=== PATIENT | male | born 1985 | race Two or more races ===

== ENCOUNTER 2017-09-10 13:28 | Emergency (ER) | payer BC, OTHER ==
[2017-09-10 13:45] VITALS: TEMP 97.5; BMI 34.2
--- NOTE | 2017-09-10 14:03 | PDOC ---
Attending Attestation - Resident Resident Name: Oswaldo Rice - ED Attending Attestation I have performed the following: I have examined & evaluated the patient, The case was reviewed & discussed with the resident, I agree w/resident's findings & plan, Exceptions are as noted
--- NOTE | 2017-09-10 14:13 | PDOC ---
History of Present Illness - General Chief Complaint: Blood Sugar Problem Stated Complaint: BLOOD SUGAR PROBLEM Time Seen by Provider: 09/10/17 13:53 History Source: Patient Exam Limitations: No Limitations - History of Present Illness Initial Comments: 09/10/17 14:04 Patient is a 32M with history of IDDM here today complaining of high blood sugar. He measured his blood sugar at about 350. He called his PCP who told him to come into to be seen. He says he's eaten nothing today except for a granola bar just before coming. Associated symptoms include increased urination and dizziness. He denies pain with urination. He describes the dizziness as feeling like he's going to fall over. He denies nausea, vomiting, fevers and chills. He denies chest pain, shortness of breath and diaphoresis. Past History - Past Medical History Allergies/Adverse Reactions: Allergies Allergy/AdvReac Type Severity Reaction Status Date / Time No Known Allergies Allergy Verified 09/10/17 13:38 Home Medications: Ambulatory Orders Insulin Glargine,Hum.rec.anlog [Lantus Solostar PEN (NF)] 10 units SQ HS Metformin HCl 500 mg PO BID 09/10/17 COPD: No Diabetes: Yes (iddm) - Suicide/Smoking/Psychosocial Hx Smoking History: Never smoked Have you smoked in the past 12 months: No Information on smoking cessation initiated: No Hx Alcohol Use: No Drug/Substance Use Hx: No Substance Use Type: None Review of Systems - Review of Systems Comments:: 09/10/17 14:13 GENERAL/CONSTITUTIONAL: No fever or chills. No weakness. HEAD, EYES, EARS, NOSE AND THROAT: No change in vision. No sore throat. CARDIOVASCULAR: No chest pain or shortness of breath RESPIRATORY: No cough, wheezing, or hemoptysis. GASTROINTESTINAL: No nausea, vomiting, diarrhea or constipation. GENITOURINARY: No dysuria, frequency, or change in urination. MUSCULOSKELETAL: No joint or muscle swelling or pain. No neck or back pain. SKIN: No rash NEUROLOGIC: No headache, loss of consciousness, or change in strength/ sensation. Positive for dizziness ENDOCRINE: No increased thirst. No abnormal weight change HEMATOLOGIC/LYMPHATIC: No anemia, easy bleeding, or history of blood clots. ALLERGIC/IMMUNOLOGIC: No hives or skin allergy. *Physical Exam - Vital Signs Last Vital Signs Temp Pulse Resp BP Pulse Ox 97.5 F L 86 18 135/78 100 09/10/17 13:38 09/10/17 13:38 09/10/17 13:38 09/10/17 13:38 09/10/17 13:38 - Physical Exam Comments: 09/10/17 14:15 GENERAL: Awake, alert, and fully oriented, in no acute distress HEAD: No signs of trauma, normocephalic, atraumatic EYES: PERRLA, EOMI, sclera anicteric, conjunctiva clear ENT: Auricles normal inspection, hearing grossly normal, nares patent, oropharynx clear without exudates. Moist mucosa NECK: Normal ROM, supple, no lymphadenopathy, JVD, or masses LUNGS: No distress, speaks full sentences, clear to auscultation bilaterally HEART: Regular rate and rhythm, normal S1 and S2, no murmurs, rubs or gallops, peripheral pulses normal and equal bilaterally. ABDOMEN: Soft, nontender, normoactive bowel sounds. No guarding, no rebound. No masses EXTREMITIES: Normal inspection, Normal range of motion, no edema. No clubbing or cyanosis. NEUROLOGICAL: Cranial nerves II through XII grossly intact. Normal speech, normal gait, no focal sensorimotor deficits. No cerebellar signs. SKIN: Warm, Dry, normal turgor, no rashes or lesions noted. ED Treatment Course - LABORATORY CBC & Chemistry Diagram: 09/10/17 14:52 09/10/17 14:53 Medical Decision Making - Medical Decision Making 09/10/17 14:15 32M with history of IDDM here today with high blood sugar and dizziness. Neuro exam normal. Vital signs stable and normal. Blood sugar at 145 here today. Patient took own blood sugar, again 350. Will repeat with out machine. 09/10/17 14:25 Repeat blood sugar 410. Will evaluate with labs. Will give fluids. 09/10/17 16:24 Laboratory Tests 09/10/17 09/10/17 09/10/17 14:52 14:53 15:00 WBC 6.4 Hgb 16.6 Hct 48.4 Plt Count 196 Potassium 4.2 Anion Gap 11 BUN 14 Creatinine 0.9 Random Glucose 383 H* Troponin I < 0.02 Ur Specific [place] 1.037 H Urine Glucose (UA) 3+ H Urine Ketones 2+ H CBC normal. K normal. Trop negative. Glucose 383, elevated. Urine notable for 3 + glucose and 2+ ketones. 09/10/17 17:14 CXR normal, will give second liter of fluid and repeat glucose. 09/10/17 17:32 Acetone neg. Repeat blood sugar 123. Patient feels tired but improved. Will discharge with PCP follow up. Patient has PCP appointment scheduled for tomorrow. Return precautions given. Discharged to home. *DC/Admit/Observation/Transfer Diagnosis at time of Disposition: Hyperglycemia - Discharge Dispostion Disposition: HOME Condition at time of disposition: Good Admit: No - Referrals - Patient Instructions Printed Discharge Instructions: DI for Hyperglycemia -- Adult Additional Instructions: Please follow up with your primary care doctor tomorrow as discussed. Please return with any new, concerning or worsening symptoms. - Post Discharge Activity
[2017-09-10] MEDS ORDERED: SODIUM CHLORIDE 1,000 ML IV STA ×2 (14:27→17:11)
[2017-09-10 15:07] LABS: MCH 29.3 pg (25.7-33.7); MCHC 34.3 g/dl (32.0-35.9); MEAN CELL VOLUME 85.2 fl (80-96); PLATELET COUNT 196 K/MM3 (134-434); RDW 12.1 % (11.9-15.9); WHITE BLOOD COUNT 6.4 K/mm3 (4.0-10.0)
[2017-09-10 15:17] LABS: URINE APPEARANCE CLEAR; URINE BILIRUBIN NEGATIVE (NEGATIVE); URINE BLOOD NEGATIVE (NEGATIVE); URINE COLOR LTYELLOW; URINE GLUCOSE (UA) 3+ (NEGATIVE); URINE KETONE 2+ (NEGATIVE); URINE NITRITE NEGATIVE (NEGATIVE); URINE PROTEIN NEGATIVE (NEGATIVE); URINE UROBILINOGEN NEGATIVE mg/dL (0.2-1.0)
[2017-09-10 15:54] LABS: ALBUMIN 3.6 g/dl (3.4-5.0); ANION GAP 11 (8-16); BILIRUBIN,TOTAL 1.1 mg/dL (0.2-1.0); CALCIUM 8.4 mg/dL (8.5-10.1); CO2 24 mmol/L (21-32); CREATININE 0.9 mg/dL (0.7-1.3); SGOT/AST 25 U/L (15-37); SGPT/ALT 61 U/L (12-78)
[2017-09-10 15:57] LABS: ALK PHOS 154 U/L (45-117); CPK 105 IU/L (39-308); TROPONIN I < 0.02 ng/ml (0.00-0.05)
[2017-09-10 15:58] LABS: GLUCOSE,RANDOM 383 mg/dL (74-106)
[2017-09-10 17:21] LABS: ACETONE SERUM NEGATIVE (NEGATIVE)
[2017-09-10 18:17] VITALS: BP 126/74; PULSE 79
[2017-09-10 19:55] LABS: URINE LEUK ESTERASE Negative (NEGATIVE)
--- NOTE | 2017-09-11 15:38 | EKG ---
Test Reason : Blood Pressure : / mmHG Vent. Rate : 081 BPM Atrial Rate : 081 BPM P-R Int : 180 ms QRS Dur : 100 ms QT Int : 362 ms P-R-T Axes : 030 067 041 degrees QTc Int : 420 ms NORMAL SINUS RHYTHM ST ELEVATION, CONSIDER EARLY REPOLARIZATION, PERICARDITIS, OR INJURY ABNORMAL ECG NO PREVIOUS ECGS AVAILABLE REPEAT EKG IF CLINICALLY INDICATED Confirmed by XIANG CALDERÓN MD ([id number] on 09/11/2017 3:37:55 PM Referred By: Confirmed By:XIANG CALDERÓN MD
== END 2017-09-10 18:17 | disposition home or self-care (01) ==
LOC: JER 13:28
DX: E10.65 Type 1 diabetes mellitus with hyperglycemia (principal); Z79.4 Long term (current) use of insulin
CPT/HCPCS: 36415; 71020-TC; 80053; 81003; 82009; 82550; 84484; 85027; 93005; 93010; 99284-25